=== PATIENT | female | born 1945 | race Caucasian/White ===

== ENCOUNTER 2019-10-15 08:48 | Outpatient (CLI) | payer MEDICARE, SELFPAY ==
--- NOTE | ~2019-10-15 | MMUS_ITS ---
EXAMINATION: MM diagnostic jet LT w louann, US breast LT limited HISTORY: Palpable upper outer quadrant left breast lump TECHNIQUE: ML, MLO and cc 3-D tomosynthesis images of the left breast were performed and synthetic 2- D images were generated. CAD analysis was submitted and interpreted. High resolution upper outer quad rant left breast ultrasound was performed. COMPARISON: 02/12/2019, 01/23/2017 bilateral digital screening mammogram examinations BREAST PARENCHYMAL COMPOSITION: There are scattered areas of fibroglandular density. FINDINGS: MAMMOGRAPHIC FINDINGS: No suspicious mass, architectural distortion, malignant calcification, skin thickening or retraction is evident. ULTRASOUND: 2:00 4 cm from nipple: There is a superficial 5.3 x 4.4 x 5.3 mm sonolucency without internal vascula rity but with suggestion of some posterior shadowing; needle aspiration and if necessary biopsy is re commended. At 2:00 3 cm from the nipple there is an approximately 2.7 x 2.9 mm irregular mass with suggestion of spiculated margins, with posterior shadowing. This lesion is suspicious. Ultrasound-guided biopsy is recommended. 2:00 2 cm from nipple: 1.7 x 2.4 mm sonolucency without internal vascularity or posterior shadowing IMPRESSION: 1. Suspicious irregular mass with posterior shadowing at 2:00 3 cm from nipple; ultrasound-guided bio psy is recommended 2. 5.3 x 4.4 mm sonolucency with suggestion of some posterior shadowing at 2:00 4 cm from nipple; ult rasound-guided needle aspiration and if necessary biopsy is recommended BI-RADS category 4, suspicious findings. Reviewed, dictated and finalized at location A. [facility] IMPRESSION: 1. Suspicious irregular mass with posterior shadowing at 2:00 3 cm from nipple; ultrasound-guided biopsy is recommended 2. 5.3 x 4.4 mm sonolucency with suggestion of some posterior shadowing at 2:00 4 cm from nipple; ultrasound-guided needle aspiration and if necessary biopsy is recommended BI-RADS category 4, suspicious findings.
== END 2019-10-15 08:49 | disposition home or self-care (01) ==
PROVIDERS: PCP Nurse Practitioner Family; Visit Provider Nurse Practitioner Family
DX: N63.21 Unspecified lump in the left breast, upper outer quadrant (principal)
CPT/HCPCS: 76642; 77061; 77065; G0279

== ENCOUNTER 2019-10-16 13:22 | Outpatient (CLI) | payer MEDICARE, SELFPAY ==
--- NOTE | ~2019-10-16 | US_ITS ---
EXAMINATION: US GUIDED NEEDLE BIOPSY DATE: 10/16/2019 15:53 MASTICATOR INDICATION: Palpable upper outer quadrant left breast lump. 2:00 4 cm from nipple: Superficial 5.3 x 4.4 x 5.3 mm sonolucency 2:00 3 cm from nipple: 2.7 x 2.9 mm irregular mass with suggestion of spiculated margins with posteri or shadowing TECHNIQUE AND FINDINGS: The risks and potential benefits of the procedure were discussed with the patient, and written inform ed consent was obtained. Timeout procedure was performed. After sterile preparation of the left breas t, 1% lidocaine was utilized for local anesthesia. Using ultrasound guidance, a 20-gauge needle was introduced into the superficial 2:00 4 cm from nippl e lesion. Aspiration was performed and the lesion resolved completely. A 14G spring-loaded biopsy gun needle was advanced to the edge of the 2:00 lesion 3 cm from the nippl e of interest from a lateral approach utilizing sonographic guidance. One core tissue sample was obta ined through the lesion. Upon completion of the single biopsy pass, the lesion completely disappeared from view, apparently completely resolving, suggesting this may have been a small cyst. A biopsy with marker was not placed in either of these 2 sites since the lesions were no longer sonog raphically visible. The patient tolerated procedure well and there was no evidence of immediate complication. The patien t was given verbal instructions prior to departing from the department. The tissue sample was submitt ed to surgical pathology for histologic analysis. IMPRESSION: Complete resolution of both 2:00 lesions after aspiration/biopsy attempts, suggesting that these were both cysts. One core biopsy specimen was obtained at the 2:00 3 cm from the nipple lesion. Please refer to pathol ogy report for histologic analysis. Reviewed, dictated and finalized at Location A. Reviewed, dictated and finalized at location A. ICATOR IMPRESSION: Complete resolution of both 2:00 lesions after aspiration/biopsy attempts, sugg esting that these were both cysts. One core biopsy specimen was obtained at the 2:00 3 cm from the nipple lesion. Please refer to pathology report for histologic analysis.
== END 2019-10-16 13:23 | disposition home or self-care (01) ==
LOC: CHSIMG 13:24
PROVIDERS: PCP Nurse Practitioner Family; Visit Provider Nurse Practitioner Family
DX: N60.12 Diffuse cystic mastopathy of left breast (principal); D24.2 Benign neoplasm of left breast
CPT/HCPCS: 19083; 19000; 88305

== ENCOUNTER 2020-05-08 09:08 | Outpatient (CLI) | payer MEDICARE, SELFPAY ==
--- NOTE | ~2020-05-08 | MM_ITS ---
EXAMINATION: MM screening jet BI w louann HISTORY: Screening TECHNIQUE: Craniocaudal and mediolateral oblique 3-D tomosynthesis images were obtained and synthetic 2-D images were generated. CAD analysis was submitted and interpreted. COMPARISON: Comparison to multiple prior studies sequentially, with oldest reviewed study dated 01/28. BREAST PARENCHYMAL COMPOSITION: There are scattered areas of fibroglandular density. FINDINGS: There is no evidence of suspicious mass, calcification, or architectural distortion to sugg est malignancy in either breast. There has been no suspicious interval change. IMPRESSION: 1. No mammographic evidence of malignancy. 2. Recommend routine screening mammography in one year. BI-RADS Category 1: Negative Reviewed, dictated and finalized at location A.
== END 2020-05-08 09:09 | disposition home or self-care (01) ==
LOC: CHSIMG 09:10
PROVIDERS: PCP Family Medicine; Visit Provider Nurse Practitioner Family
DX: Z12.31 Encounter for screening mammogram for malignant neoplasm of breast (principal)
CPT/HCPCS: 77063; 77067

== ENCOUNTER 2021-01-01 08:20 | Outpatient (CLI) | payer MEDICARE, SELFPAY ==
[2021-01-01 08:33] LABS: Hematocrit 37.6 % (35.0-42.0); Hemoglobin 12.1 g/dL (11.7-13.8); Mean Corpuscular HGB Conc 32.2 g/dL (32.0-36.0); Mean Corpuscular Hemoglobin 28.7 pg (27.0-31.0); Mean Corpuscular Volume 89.3 fL (78.0-102.0); Mean Platelet Volume 9.7 fl (9.2-11.8); Platelet Count Result 209 K/mm3 (150-420); Red Blood Count 4.21 M/mm3 (4.20-5.40); Red Cell Distribution Width 12.3 % (11.6-14.4); White Blood Count 5.4 K/mm3 (4.8-10.8)
[2021-01-01 09:30] LABS: Alanine Aminotransferase 18 U/L (14-59); Albumin Level 3.1 g/dL (3.4-5.0); Alkaline Phosphatase 112 U/L (46-116); Anion Gap 7 mmol/L (8-16); Aspartate Amino Transferase 14 U/L (15-37); Bilirubin,Total 0.3 mg/dL (0.00-1.00); Blood Urea Nitrogen 21 mg/dL (7-18); Calcium 9.2 mg/dL (8.5-10.1); Carbon Dioxide 30 mmol/L (21-32); Chloride 106 mmol/L (98-108); Estimated Glomerular Filt Rate > 60; Glucose 88 mg/dL (70-99); Osmolality Calculated 298 mOsm/kg (285-295); Potassium 4.3 mmol/L (3.5-5.1); Sodium 143 mmol/L (136-145); Total Protein 5.7 g/dL (6.4-8.2)
[2021-01-05 07:23] LABS: Carcinoembryonic Antigen 1.6 ng/mL (0.0-2.4)
== END 2021-01-01 08:21 | disposition home or self-care (01) ==
LOC: CHSLAB 08:25
PROVIDERS: PCP Family Medicine; Visit Provider Family Medicine
DX: C20 Malignant neoplasm of rectum (principal); I10 Essential (primary) hypertension
CPT/HCPCS: 36415; 80053; 82378; 85027

== ENCOUNTER 2021-12-27 14:36 | Outpatient (NON) | payer MEDICARE, SELFPAY | END 2021-12-27 14:37 | disposition home or self-care (01) | LOC: CHSLAB 14:41 | PROVIDERS: Visit Provider Nurse Practitioner Family | DX: N39.0 Urinary tract infection, site not specified (principal) | CPT/HCPCS: 87086; 87088 ==

== ENCOUNTER 2022-01-10 13:28 | Outpatient (CLI) | payer MEDICARE, SELFPAY ==
[2022-01-10 13:49] LABS: Add Urine Microscopic? YES; Appearance Urine Cloudy (Clear); Bilirubin Urine Negative (Negative); Blood Urine 3+ (Negative); Color Urine Yellow (Yellow); Glucose Urine UA Negative (Negative); Ketones Urine Trace (Negative); Leukocyte Esterase Ur 2+ (Negative); Nitrate Urine Negative (Negative); Protein Urine 2+ (Negative); Specific Grav Ur 1.025 (1.010-1.020); Urobilinogen Urine 0.2 mg/dL (0.2-1.0)
[2022-01-10 13:52] LABS: Bacteria Urine 4+ /hpf; Squamous Epithelial Cell Urine Few /hpf (Few); WBC Urine 16-20 /hpf (0-3)
== END 2022-01-10 13:29 | disposition home or self-care (01) ==
LOC: CHSLAB 13:30
PROVIDERS: PCP Nurse Practitioner Family; Visit Provider Nurse Practitioner Family
DX: N39.0 Urinary tract infection, site not specified (principal)
CPT/HCPCS: 81001; 87086

== ENCOUNTER 2023-06-02 11:18 | Emergency (ER) | payer MEDICARE, SELFPAY ==
--- NOTE | ~2023-06-02 | XR_ITS ---
EXAMINATION: XR chest 1V portable DATE: 06/02/2023 11:41 INDICATION: Chest pain. Headache. TECHNIQUE: A single frontal view of the chest was obtained. COMPARISON: None. FINDINGS: A calcified left lung nodule and calcified left hilar lymph nodes are consistent with old g ranulomatous disease. There is no pneumonia, pleural effusion, or pneumothorax. The heart size is nor mal. IMPRESSION: 1. No acute cardiopulmonary disease. Reviewed, dictated and finalized at location E.
--- NOTE | ~2023-06-02 | CT_ITS ---
EXAMINATION: CT brain wo con DATE: 06/02/2023 11:42 INDICATION: Headache. Lip tingling. TECHNIQUE: Computed tomography (CT) of the head was performed without intravenous contrast. The dose- length product was 681.00 mGy-cm. Automated exposure control and iterative reconstruction technique w ere employed. COMPARISON: No prior studies for comparison. FINDINGS: Generalized brain parenchymal volume loss. No ventriculomegaly or midline shift. Basilar ci sterns are patent. There are scattered mild periventricular and subcortical white matter changes, mos t likely related to small vessel ischemic disease (microangiopathy). No acute infarction, hemorrhage, mass or mass effect. Paranasal sinuses and mastoids are pneumatized. No depressed skull fractures. IMPRESSION: 1. No acute intracranial abnormality. Reviewed, dictated and finalized at location B.
[2023-06-02 11:19] VITALS: BP 197/96; PULSE 76; RESP 20; TEMP 36.4; O2SAT 96
--- NOTE | 2023-06-02 11:23 | ECG_ITS ---
Measurements Intervals [place] Rate: 62 P: 47 DC: 145 QRS: 18 QRSD: 114 T: 33 QT: 412 QTc: 419 Interpretive Statements SINUS RHYTHM INCOMPLETE RIGHT BUNDLE BRANCH BLOCK LEFT VENTRICULAR HYPERTROPHY MINIMAL Q WAVES- HIGH LATERAL LEADS BORDERLINE ECG NO PREVIOUS ECG AVAILABLE FOR COMPARISON Electronically Signed On 06-02-2023 12:32:46 CDT by James Painting D.O.
--- NOTE | 2023-06-02 11:25 | ED.GENADULT ---
HPI - General Adult General Chief complaint: Headache Stated complaint: high BP Time Seen by Provider: 06/02/23 11:19 Source: patient History of Present Illness HPI narrative: 77-year-old female presenting with high blood pressure. Patient states she started having headache approximately 1 hours ago. She states during this time she checked her blood pressure and noted it to be elevated. She states she spoke to a friend who told her she needs to immediately come to the emergency department. He is currently asymptomatic. No recent illnesses. She does states she got vaccines for COVID approximately 1 week ago and that she has felt bad since then. Related Data Home Medications Medication Instructions Recorded Confirmed lisinopril 10 mg tablet 10 mg PO DAILY 06/02/23 06/02/23 Allergies Allergy/AdvReac Type Severity Reaction Status Date / Time No Known Allergies Allergy Verified 06/02/23 11:29 [facility] Past Medical History Medical History Benign hypertension Colostomy present Hemiparesis Right Side Overweight (BMI 25.0-29.9) Rectal cancer (~1999) 1999, in remission Thyroid disorder Surgical History Surgical History H/O splenectomy History of colon resection (~1999) History of hysterectomy History of resection of liver History of resection of stomach Family History Family History Brother Family history of coronary artery disease Family history of type 2 diabetes mellitus Mother Family history of type 2 diabetes mellitus Family history of coronary artery disease Cerebrovascular accident Thyroid disease Sister Family history of coronary artery disease Family history of type 2 diabetes mellitus Thyroid disease Father Carcinoma of colon Social History Social History Smoking status: Never smoker Alcohol intake: never Substance use: never Substance use type: does not use Lack of Transportation: No Lack of Food: Sometimes True Current Housing: I Have Housing Concerned About Future Housing: No Difficulty Paying Gas/Electric Bills: No Difficulty Paying for Meds: No Currently Unemployed: No Education: Master's Degree or Higher Difficulty w/ Childcare or Family Care: No Additional living arrangements comments: , has 5 children Occupation/Education: retired Additional occupation/education comments: 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 Neurologically intact. Cranial nerves 2-12 grossly intact. No loss sensation. No loss of muscle strength. No loss of coordination. All the systems otherwise unremarkable or negative Course Vital Signs Vital signs: Vital Signs Temperature 36.4 C 06/02/23 11:19 Pulse Rate 76 06/02/23 11:19 Respiratory Rate 20 06/02/23 11:19 Blood Pressure 197/96 H 06/02/23 11:19 Pulse Oximetry 96 06/02/23 11:19 Oxygen Delivery Room Air 06/02/23 11:19 Temperature 36.4 C 06/02/23 11:19 Pulse Rate 76 06/02/23 11:19 Respiratory Rate 20 06/02/23 11:19 Blood Pressure 197/96 H 06/02/23 11:19 Pulse Oximetry 96 06/02/23 11:19 Oxygen Delivery Room Air 06/02/23 11:19 Medical Decision Making MDM Narrative Medical decision making narrative: patient with urinary frequency and UA concerning for possible urinary tract infection. Will treat. Otherwise unremarkable workup. Negative troponin. Nonischemic EKG. For imaging per my review official reading without acute pathological findings. Patient encouraged to monitor her blood pressure and follow-up with her PCP. she has no red flag symptomatology. She appears well. She is nontoxi
[2023-06-02] MEDS: hydrALAZINE 5 MG TABLET PO (11:42)
[2023-06-02 11:56] LABS: Basophils Absolute Auto 0.05 K/mm3 (0.00-0.10); Basophils Percent Auto 0.9 % (0.0-1.0); Eosinophils Absolute Auto 0.24 K/mm3 (0.02-0.50); Eosinophils Percent Auto 4.4 % (1.0-6.0); Hematocrit 40.9 % (35.0-42.0); Hemoglobin 13.4 g/dL (11.7-13.8); Immature Granulocyte Absolute 0.02 K/mm3 (0.00-0.00); Immature Granulocyte Percent A 0.4 % (0.0-0.0); Immature Platelet Fraction Pct 4.8 % (1.0-7.0); Lymphocytes Absolute Auto 1.41 K/mm3 (1.10-4.50); Lymphocytes Percent Auto 25.6 % (18.0-42.0); Mean Corpuscular HGB Conc 32.8 g/dL (32.0-36.0); Mean Corpuscular Hemoglobin 29.1 pg (27.0-31.0); Mean Corpuscular Volume 88.9 fL (78.0-102.0); Mean Platelet Volume 10.5 fl (9.2-11.8); Monocytes Absolute Auto 0.56 K/mm3 (0.10-0.90); Monocytes Percent Auto 10.2 % (2.0-11.0); Neutrophils Absolute Auto 3.2 K/mm3 (1.7-7.2); Neutrophils Percent Auto 58.5 % (50.0-70.0); Platelet Count Result 222 K/mm3 (150-420); Red Cell Distribution Width 12.2 % (11.6-14.4); White Blood Count 5.5 K/mm3 (4.8-10.8)
[2023-06-02 11:57] LABS: Appearance Urine Clear (Clear); Bilirubin Urine Negative (Negative); Blood Urine Negative (Negative); Color Urine Light Yellow (Yellow); Glucose Urine UA Negative (Negative); Ketones Urine Negative (Negative); Leukocyte Esterase Ur 1+ LEU/UL (Negative); Nitrate Urine Negative (Negative); Protein Urine Negative (Negative); Specific Grav Ur 1.015 (1.010-1.020); Urobilinogen Urine 0.2 mg/dL (0.2-1.0)
[2023-06-02 12:04] LABS: Add Urine Microscopic? YES; RBC Urine None seen /hpf (0-2); Squamous Epithelial Cell Urine Rare /hpf (Few)
[2023-06-02 12:05] LABS: Bacteria Urine 1+ /hpf
[2023-06-02 12:14] LABS: Alanine Aminotransferase 20 U/L (14-59); Albumin Level 3.3 g/dL (3.4-5.0); Alkaline Phosphatase 100 U/L (46-116); Anion Gap 10 mmol/L (8-16); Aspartate Amino Transferase 17 U/L (15-37); Bilirubin,Total 0.4 mg/dL (0.00-1.00); Blood Urea Nitrogen 15 mg/dL (7-18); Calcium 9.4 mg/dL (8.5-10.1); Carbon Dioxide 28 mmol/L (21-32); Chloride 103 mmol/L (98-108); Estimated CRCL calculation 62 ml/min; Estimated Glomerular Filt Rate > 60; Glucose 95 mg/dL (70-99); Osmolality Calculated 292 mOsm/kg (285-295); Potassium 4.1 mmol/L (3.5-5.1); Sodium 141 mmol/L (136-145); Total Protein 6.7 g/dL (6.4-8.2); Troponin I 9.3 ng/L (0.00-60.4)
[2023-06-02 12:58] VITALS: BP 185/61; PULSE 64; RESP 20; TEMP 36.8; O2SAT 97
[2023-06-02 12:59] VITALS: BP 197/92; PULSE 64
--- NOTE | 2023-06-04 12:21 | PC.NURSE ---
FINAL URINE CULTURE REPORT: NO GROWTH, NO FURTHER ACTION OR TREATMENT NEEDED.
== END 2023-06-02 12:59 | disposition home or self-care (01) ==
PROVIDERS: Emergency Provider Emergency Medicine; PCP Nurse Practitioner Family
DX: I10 Essential (primary) hypertension (principal); R35.0 Frequency of micturition; Z85.048 Personal history of other malignant neoplasm of rectum, rectosigmoid junction, and anus
CPT/HCPCS: 36415; 70450; 71045; 80053; 81001; 84484; 85025; 85055; 87086; 93005; 99284; A9270

== ENCOUNTER 2024-09-17 08:07 | Outpatient (CLI) | payer MEDICARE, SELFPAY ==
--- NOTE | ~2024-09-17 | DEXA_ITS ---
Bone Density Report Name: CHAPARRO ENGLE Age: 78 Sex: Female Ethnicity: White Date of : 1945 Indication: postmenopausal; screening for osteoporosis; parental hip fracture; height loss; cancer; Referring Provider: Aleyda Hernández Study: Bone densitometry was performed. Exam Date: September 17, 2024 Accession number: [id number] Bone Density: Region BMD T-score Z-score Classification AP Spine(L1-L4) 1.000 -0.4 2.1 Normal Femoral Neck (Left) 0.655 -1.7 0.4 Osteopenia Total Hip (Left) 0.706 -1.9 0.0 Osteopenia Femoral Neck (Right) 0.600 -2.2 -0.1 Osteopenia Total Hip (Right) 0.663 -2.3 -0.4 Osteopenia Femoral Neck Mean 0.628 -2.0 0.2 Osteopenia Total Hip Mean 0.685 -2.1 -0.2 Osteopenia World Health Organization criteria for BMD impression classify patients as: Normal (T-score at or above -1.0), Osteopenia (T-score between -1.0 and -2.5), or Osteoporosis (T-score at or below -2.5). 10-year Fracture Risk(1): Major Osteoporotic Fracture 27% Hip Fracture 17% Reported Risk Factors: [place] (), Neck BMD=0.600, BMI=27.8, parental fracture (1) FRAX(R) Version 3.08. Fracture probability calculated for an untreated patient. Fracture probability may be lower if the patient has received treatment. Clinical Information Provided by Patient: Parent has had a hip fracture Has used the following medications: Vitamin D, Calcium Has the following medical conditions: Cancer Patient maximum height was 67 Menopause Age: 52 Drinks caffeinated beverages Onset of menses at age 18 Number of children 3 Impression: The patient has low bone mass, based on the Right Total Hip T-score. The patient has risk factors, including: parental hip fracture. Discussion: BONE DENSITY IS LOW AT ONE OR MORE SKELETAL SITES. This patient's lowest T-score is low at one or more skeletal sites. It meets the World Health Organization's (WHO) criteria for ?low bone mass? (T-score between -1.0 and -2.5). The patient's 10-year risk of fracture as calculated by FRAX is less than the threshold where pharmacological therapy is recommended by the National Osteoporosis Foundation (NOF). However, all treatment decisions require clinical judgment and consideration of individual patient factors, including patient preferences, comorbidities, previous drug use, risk factors not captured in the FRAX model (e.g., frailty, falls, vitamin D deficiency, increased bone turnover, interval significant decline in bone density) and possible under or overestimation of fracture risk by FRAX. The patient should follow a healthful lifestyle (good nutrition with adequate calcium and vitamin D, and appropriate weight-bearing exercise). Follow-Up: Consider repeating this study in 2 to 3 years to reassess this patient's status, or sooner if there is some new clinical indication. Reported by: CHET on 09/17/2024 8:43:00 AM. Reviewed, dictated and finalized at location A.
[2024-09-17 09:03] LABS: Alanine Aminotransferase 19 U/L (14-59); Albumin Level 3.2 g/dL (3.4-5.0); Alkaline Phosphatase 89 U/L (46-116); Anion Gap 6 mmol/L (4-12); Aspartate Amino Transferase 15 U/L (15-37); Bilirubin,Total 0.5 mg/dL (0.00-1.00); Blood Urea Nitrogen 17 mg/dL (7-18); Calcium 9.3 mg/dL (8.5-10.1); Carbon Dioxide 31 mmol/L (21-32); Chloride 105 mmol/L (98-108); Cholesterol 184 mg/dL (0-200); Estimated Glomerular Filt Rate > 60; Glucose 91 mg/dL (70-99); HDL Direct 61 mg/dL (40-60); LDL Cholesterol Calculated 97 mg/dL (<130); Osmolality Calculated 295 mOsm/kg (285-295); Potassium 4.5 mmol/L (3.5-5.1); Sodium 142 mmol/L (136-145); Total Protein 5.8 g/dL (6.4-8.2); Triglycerides 132 mg/dL (0-150)
== END 2024-09-17 08:08 | disposition home or self-care (01) ==
PROVIDERS: PCP Nurse Practitioner Family; Visit Provider Nurse Practitioner Family
DX: Z13.6 Encounter for screening for cardiovascular disorders (principal); Z78.0 Asymptomatic menopausal state; M85.89 Other specified disorders of bone density and structure, multiple sites
CPT/HCPCS: 36415; 77080; 80053; 80061

== ENCOUNTER 2025-02-04 15:57 | Outpatient (NON) | payer MEDICARE, SELFPAY | END 2025-02-04 15:58 | disposition home or self-care (01) | LOC: CHSLAB 15:59 | PROVIDERS: PCP Nurse Practitioner Family; Visit Provider Nurse Practitioner Family | DX: R35.0 Frequency of micturition (principal) | CPT/HCPCS: 87086; 87186 ==

== ENCOUNTER 2025-02-10 10:55 | Outpatient (CLI) | payer MEDICARE, SELFPAY ==
[2025-02-10 11:21] LABS: Basophils Absolute Auto 0.08 K/mm3 (0.00-0.10); Basophils Percent Auto 1.3 % (0.0-1.0); Eosinophils Absolute Auto 0.22 K/mm3 (0.02-0.50); Eosinophils Percent Auto 3.7 % (1.0-6.0); Hematocrit 39.7 % (35.0-42.0); Hemoglobin 12.5 g/dL (11.7-13.8); Immature Granulocyte Absolute 0.02 K/mm3 (0.00-0.00); Immature Granulocyte Percent A 0.3 % (0.0-0.0); Lymphocytes Absolute Auto 1.24 K/mm3 (1.10-4.50); Lymphocytes Percent Auto 20.8 % (18.0-42.0); Mean Corpuscular HGB Conc 31.5 g/dL (32-36); Mean Corpuscular Hemoglobin 28.2 pg (27.0-31.0); Mean Corpuscular Volume 89.4 fL (78.0-102.0); Mean Platelet Volume 9.7 fl (9.2-11.8); Monocytes Absolute Auto 0.56 K/mm3 (0.10-0.90); Monocytes Percent Auto 9.4 % (2.0-11.0); Neutrophils Absolute Auto 3.85 K/mm3 (1.70-7.20); Neutrophils Percent Auto 64.5 % (50.0-70.0); Platelet Count Result 222 K/mm3 (150-420); Red Blood Count 4.44 M/mm3 (4.20-5.40); Red Cell Distribution Width 12.9 % (11.6-14.4)
[2025-02-10 11:44] LABS: Alanine Aminotransferase 17 U/L (6-35); Albumin Level 3.5 g/dL (3.5-5.1); Alkaline Phosphatase 72 U/L (38-126); Anion Gap 2 mmol/L (4-12); Aspartate Amino Transferase 24 U/L (14-36); Bilirubin,Total 0.6 mg/dL (0.2-1.3); Blood Urea Nitrogen 24 mg/dL (7-17); Calcium 8.9 mg/dL (8.4-10.2); Carbon Dioxide 30 mmol/L (22-30); Chloride 106 mmol/L (98-107); Estimated Glomerular Filt Rate > 60; Glucose 90 mg/dL (65-110); Osmolality Calculated 290 mOsm/kg (285-295); Sodium 138 mmol/L (137-145); Total Protein 5.8 g/dL (6.3-8.2)
[2025-02-10 11:55] LABS: NT Pro B Type Natriuretic Pept 249 pg/mL (19.9-100); Troponin I < 0.012 ng/mL (0.000-0.034)
== END 2025-02-10 10:56 | disposition home or self-care (01) ==
LOC: CHSLAB 10:56
PROVIDERS: PCP Nurse Practitioner Family; Visit Provider Nurse Practitioner Family
DX: I11.0 Hypertensive heart disease with heart failure (principal)
CPT/HCPCS: 36415; 80053; 83880; 84484; 85025